=== PATIENT | female | born 1945 | race Caucasian/White ===

== ENCOUNTER 2020-11-28 16:46 | Emergency (ER) | payer BC, MEDICARE ==
[2020-11-28] MEDS ORDERED: Meclizine 25 MG Tab PO ONE (16:53)
[2020-11-28 17:04] VITALS: BP 144/84; PULSE 108
[2020-11-28 17:21] LABS: CHLORIDE,CL 106 mmol/L (98-107); SODIUM,NA 145 mmol/L (136-145)
--- NOTE | 2020-11-28 17:28 | EDM.PDOC ---
ED HPI GENERAL MEDICAL PROBLEM - General Chief Complaint: General Stated Complaint: dizzyness Time Seen by Provider: 11/28/20 17:04 Source of Information: Reports: Patient History Limitations: Reports: No Limitations - History of Present Illness INITIAL COMMENTS - FREE TEXT/NARRATIVE: Patient comes to ER with vertigo. Has long history of vertigo and takes PRN Meclizine one tab every 12 hours. Started up today again and didn't get much better after the Meclizine. Came to ER to see if there was anything else we could give her for the dizziness. No vomiting. No other changes. - Related Data Allergies Allergy/AdvReac Type Severity Reaction Status Date / Time tissue adheisive/Skin Glue Allergy Severe severe Uncoded 11/28/20 16:48 blistering/skin peeling Home Meds: Home Meds Aspirin 81 mg PO QAM 01/13/16 [History] Fluticasone Propionate [Flonase] 1 spray NASBOTH BID PRN 01/13/16 [History] Hydrochlorothiazide/Lisinopril [Lisinopril/HCTZ 10-12.5 MG] 1 tab PO QAM 01/13/16 [History] Levothyroxine 25 mcg PO QAM 01/13/16 [History] Multivitamins [Tab-A-Rhina] 1 tab PO QAM 01/13/16 [History] Meclizine [Antivert] 25 mg PO BID PRN 11/28/20 [History] Past Medical History Cardiovascular History: Reports: High Cholesterol, Hypertension Musculoskeletal History: Reports: Osteoarthritis, Other (See Below) Other Musculoskeletal History: Degenerative Joint Disease Endocrine/Metabolic History: Reports: Hypothyroidism - Past Surgical History GI Surgical History: Reports: Appendectomy, Colon, Colostomy, Hernia Repair/Other Female Surgical History: Reports: Tubal Ligation, Other (See Below) Musculoskeletal Surgical History: Reports: Joint Replacement Social & Family History - Tobacco Use Tobacco Use Status *Q: Never Tobacco User Second Hand Smoke Exposure: Yes - Caffeine Use Caffeine Use: Reports: Soda, Tea - Recreational Drug Use Recreational Drug Use: No ED ROS GENERAL - Review of Systems Review Of Systems: Comprehensive ROS is negative, except as noted in HPI. ED EXAM, GENERAL - Physical Exam Exam: See Below Exam Limited By: No Limitations General Appearance: Alert, WD/WN, No Apparent Distress Eye Exam: Bilateral Eye: EOMI, PERRL Ears: Normal Canal, Hearing Grossly Normal Nose: No: Nasal Deformity, Nasal Swelling, Nasal Drainage Throat/Mouth: Normal Voice, No Airway Compromise Head: Atraumatic, Normocephalic Neck: Supple Respiratory/Chest: Lungs Clear Cardiovascular: Regular Rate, Rhythm, No Edema, No Murmur Neurological: Alert, Oriented, CN II-XII Intact, Normal Cognition, No Motor /Sensory Deficits Psychiatric: Normal Affect, Normal Mood Skin Exam: Warm, Dry, Intact, Normal Color Course - Vital Signs Last Recorded V/S: Last Vital Signs Temp 37.1 C 11/28/20 17:02 Pulse 108 H 11/28/20 17:02 Resp 18 11/28/20 17:02 BP 144/84 H 11/28/20 17:02 Pulse Ox 98 11/28/20 17:02 - Orders/Labs/Meds Labs: Laboratory Tests 11/28/20 11/28/20 Range/Units 17:00 17:00 WBC 6.4 (4.0-10.2) K/uL RBC 4.14 (3.77-5.09) M/uL Hgb 12.9 (11.7-15.5) g/dL Hct 38.1 (34.0-46.0) % MCV 92.0 (84.0-98.0) fL MCH 31.2 (28.2-33.3) pg MCHC 33.9 (31.7-36.0) g/dL RDW 13.3 (11.2-14.1) % Plt Count 319 (150-350) K/uL Neut % (Auto) 72.2 (45.0-80.0) % Lymph % (Auto) 20.6 (10.0-50.0) % Rhea % (Auto) 5.9 (2.0-14.0) % Eos % (Auto) 0.5 (0.0-5.0) % Baso % (Auto) 0.8 (0.0-2.0) % Neut # (Auto) 4.64 (1.40-7.00) K/uL Lymph # (Auto) 1.32 (0.50-3.50) K/uL Rhea # (Auto) 0.38 (0.00-1.00) K/uL Eos # (Auto) 0.03 (0.00-0.50) K/uL Baso # (Auto) 0.05 (0.00-0.20) K/uL Sodium 145 (136-145) mmol/L Potassium 3.8 (3.5-5.1) mmol/L Chloride 106 (98-107) mmol/L Carbon Dioxide 25.6 (21.0-32.0) mmol/L BUN 19 H (7-18) mg/dL Creatinine 0.68 (0.51-1.17) mg/dL Est Cr Clr Drug Dosing 68.98 mL/min Estimated GFR (MDRD) > 60 mL/min Glucose 118 H (70-99) mg/dL Calcium 8.9 (8.5-10.1) mg/dL Magnesium 2.0 (1.8-2.4) mg/dL Total Bilirubin 0.5 (0.2-1.0) mg/dL AST 16 (15-37) U/L ALT 20 (12-78) U/L Alkaline Phosphatase 79 (46-116) IU/L Total Protein 7.1 (6.4-8.2) g/dL Albumin 3.9 (3.4-5.0) g/dL Meds: Medications Discontinued Medications Generic Name Dose Route Start Last Admin Trade Name Freq PRN Reason Stop Dose Admin Hydroxyzine Pamoate 25 mg 11/28/20 17:33 Hydroxyzine Pamoate 25 Mg Cap PO 11/28/20 17:34 ONETIME ONE Meclizine HCl 25 mg 11/28/20 16:53 11/28/20 17:00 Meclizine 25 Mg Tab PO 11/28/20 16:54 25 mg ONETIME ONE Administration - Re-Assessments/Exams Free Text/Narrative Re-Assessment/Exam: 11/28/20 17:36 Patient says bottle of Meclizine at home says only to take every 12 hours. We told her it would be ok to take one tab every 6-8 hours if needed. Single Meclizine given to patient. Additional single dose Vistaril given prior to discharge. She has undergone PT for her vertigo in past. She was not interested in getting a CT study to look for other possible contributors such as aneurysm, saying that the vertigo was an "old problem". She plans to follow up with her PCP this week and get a referral to go back to PT. To return to ER if symptoms worsen. Departure - Departure Time of Disposition: 17:24 Disposition: Home, Self-Care 01 Condition: Good Clinical Impression: Vertigo - Discharge Information *PRESCRIPTION DRUG MONITORING PROGRAM REVIEWED*: Not Applicable *COPY OF PRESCRIPTION DRUG MONITORING REPORT IN PATIENT MARGARITO: Not Applicable Referrals: Jenn Dickson PA-C [Primary Care Provider] - Forms: ED Department Discharge Additional Instructions: It's OK to take the Meclizine 1 tab every 6-8 hours as we discussed! See if that helps. Call your provider on Monday for new referral to PT for vertigo treatment. Follow up otherwise as needed. Sepsis Event Note (ED) - Evaluation Sepsis Screening Result: No Definite Risk - Focused Exam Vital Signs: Vital Signs Temp Pulse Resp BP Pulse Ox 11/28/20 17:02 37.1 C 108 H 18 144/84 H 98
[2020-11-28] MEDS ORDERED: hydrOXYzine Pamoate 25 MG Cap PO ONE (17:33)
== END 2020-11-28 17:55 | disposition home or self-care (01) ==
LOC: LL.ED 16:46
DX: R42 Dizziness and giddiness (principal); I10 Essential (primary) hypertension; M19.90 Unspecified osteoarthritis, unspecified site; E03.9 Hypothyroidism, unspecified; Z77.22 Contact with and (suspected) exposure to environmental tobacco smoke (acute) (chronic); Z91.048 Other nonmedicinal substance allergy status; Z79.82 Long term (current) use of aspirin; Z79.899 Other long term (current) drug therapy
CPT/HCPCS: 36415; 80053; 83735; 85025; 99283; 99284; A9270-GY; Q0177

== ENCOUNTER 2024-11-19 01:22 | Emergency (ER) | payer MEDICARE ==
[2024-11-19] MEDS ORDERED: Sodium Chloride 0.9% 10 ML Syringe FLUSH PRN (01:44)
[2024-11-19 02:04] LABS: BASOPHILS ABSOLUTE AUTO 0.03 K/uL (0.00-0.20); BASOPHILS PERCENT AUTO 0.2 % (0.0-2.0); EOSINOPHILS ABSOLUTE AUTO 0.35 K/uL (0.00-0.50); EOSINOPHILS PERCENT AUTO 2.5 % (0.0-5.0); IMMATURE GRAN ABSOLUTE AUTO 0.02 10^3/uL (0.00-0.04); IMMATURE GRAN PERCENT AUTO 0.1 % (0.0-0.4); LYMPHOCYTES ABSOLUTE AUTO 0.57 K/uL (0.50-3.50); LYMPHOCYTES PERCENT AUTO 4.0 % (10.0-50.0); MONOCYTES ABSOLUTE AUTO 1.01 K/uL (0.00-1.00); MONOCYTES PERCENT AUTO 7.2 % (2.0-14.0); NEUTROPHILS ABSOLUTE AUTO 12.10 K/uL (1.40-7.00); NEUTROPHILS PERCENT AUTO 86.0 % (45.0-80.0); PLATELET COUNT,PLT 263 K/uL (150-350); RED BLOOD CELL COUNT 4.06 M/uL (3.77-5.09); RED CELL DISTRIBUTION WIDTH 12.6 % (11.2-14.1); WHITE BLOOD CELL COUNT,WBC 14.1 K/uL (4.0-10.2)
[2024-11-19 02:25] LABS: ALANINE AMINOTRANSFERASE,ALT 18.0 U/L (12-78); ASPARTATE AMNIOTRANSFERASE,AST 14.0 U/L (15-37); BILIRUBIN TOTAL 0.7 mg/dL (0.2-1.0); BLOOD UREA NITROGEN,BUN 16.0 mg/dL (7-18); CARBON DIOXIDE,CO2 25.7 mmol/L (21.0-32.0); CHLORIDE,CL 99.0 mmol/L (98-107); CREATININE 0.79 mg/dL (0.51-1.17); EST CRCL DRUG DOSING (CG) 55.83 mL/min; ESTIMATED GFR 77.0 mL/min (>=60); GLUCOSE RANDOM 170.0 mg/dL (70-99); POTASSIUM,K 3.3 mmol/L (3.5-5.1); PROTEIN TOTAL,TP 6.8 g/dL (6.4-8.2); SODIUM,NA 137.0 mmol/L (136-145)
[2024-11-19 02:31] LABS: LACTIC ACID 0.9 mmol/L (0.4-2.0)
[2024-11-19] MEDS: Orphenadrine 100 MG Tab.ER PO ONE (02:48)
[2024-11-19] MEDS: Potassium Chloride 20 MEQ Tab.ER PO ONE (02:49)
[2024-11-19 02:58] LABS: APPEARANCE,URINE CLEAR; GLUCOSE,URINE NEGATIVE (NEGATIVE); OCCULT BLOOD,URINE SMALL (NEGATIVE)
[2024-11-19 03:10] LABS: EPITHELIAL CELLS,URINE FEW /LPF
[2024-11-19 03:20] VITALS: BP 154/83; PULSE 88
== END 2024-11-19 04:24 | disposition home or self-care (01) ==
LOC: LL.ED 01:22
DX: M54.6 Pain in thoracic spine (principal); J90 Pleural effusion, not elsewhere classified; E78.00 Pure hypercholesterolemia, unspecified; I10 Essential (primary) hypertension; E03.9 Hypothyroidism, unspecified; Z91.048 Other nonmedicinal substance allergy status; Z79.82 Long term (current) use of aspirin; Z79.890 Hormone replacement therapy; Z79.899 Other long term (current) drug therapy
CPT/HCPCS: 36415; 71046; 80053; 81001; 83605; 83735; 84484; 85025; 85379; 93005; 99284; A9270-GY